=== PATIENT | male | born 1945 | race Caucasian/White ===

== ENCOUNTER 2023-11-08 15:09 | Emergency (ER) | payer MEDICARE, OTHER | END 2023-11-08 15:38 | disposition home or self-care (01) | LOC: MW.ED 15:09 | DX: T16.1XXA Foreign body in right ear, initial encounter (principal); Z75.8 Other problems related to medical facilities and other health care; W45.8XXA Other foreign body or object entering through skin, initial encounter | CPT/HCPCS: 69200; 99282; 99282-25 ==